=== PATIENT | male | born 1935 | race Caucasian/White ===

== ENCOUNTER 2017-12-19 19:03 | Inpatient (IN) | payer MEDICARE, MEDICAID ==
[~2017-12-19] VITALS: Ht 172.7 cm; Wt 89.5 kg
[2017-12-19] MEDS ORDERED: METF500T PO (20:17)
[2017-12-19] MEDS ORDERED: LISI-600 PO (20:17)
[2017-12-19] MEDS ORDERED: ATOR80TA PO (20:17)
[2017-12-19] MEDS ORDERED: PIOG15TA8 PO (20:17)
[2017-12-19] MEDS ORDERED: GLIM4TAB79 PO (20:17)
[2017-12-19] MEDS ORDERED: CARV-50 PO (20:17)
[2017-12-19] MEDS ORDERED: TAMS0.4C32 PO (20:17)
[2017-12-19] MEDS ORDERED: ASPI-1265 PO (20:17)
[2017-12-19 20:24] LABS: BASOPHILS % (AUTO) 0.3 % (0-1); EOSINOPHILS # (AUTO) 0.1 X10'3 (0-0.9); EOSINOPHILS % (AUTO) 0.8 % (0-6); HEMATOCRIT 39.6 % (42.0-52.0); HEMOGLOBIN 13.3 g/dl (14.0-17.9); LYMPHOCYTES # (AUTO) 1.2 X10'3 (1.1-4.8); LYMPHOCYTES % (AUTO) 10.1 % (21-51); MEAN CORPUSCULAR HEMOGLOBIN 31.9 PG (27.0-31.0); MEAN CORPUSCULAR HGB CONC 33.5 % (33.0-36.5); MEAN CORPUSCULAR VOLUME 95.2 FL (78-98); MEAN PLATELET VOLUME 9.2 FL (7.4-10.4); MONOCYTES # (AUTO) 0.8 X10'3 (0-0.9); MONOCYTES % (AUTO) 6.5 % (2-12); NEUTROPHILS # (AUTO) 9.6 X10'3 (1.8-7.7); NEUTROPHILS % (AUTO) 82.3 % (42-75); PLATELET COUNT 239 X10'3 (140-440); RED BLOOD COUNT 4.16 X10'6 (4.70-6.10); RED CELL DISTRIBUTION WIDTH 16.4 % (11.5-14.5); WHITE BLOOD COUNT 11.6 X10'3 (4.5-11.0)
[2017-12-19 20:36] LABS: INR 1.1 INR; PARTIAL THROMBOPLASTIN TIME 23 SECONDS (22-32)
[2017-12-19 20:40] LABS: ALANINE AMINOTRANSFERASE 37 U/L (12-78); ALBUMIN 3.5 G/DL (3.4-5.0); ALKALINE PHOSPHATASE 114 IU/L (46-116); ANION GAP 11 (8-16); ASPARTATE AMINO TRANSFERASE 20 U/L (10-37); BILIRUBIN,TOTAL 0.9 MG/DL (0.1-1.0); BLOOD UREA NITROGEN 19 MG/DL (7-18); BUN/CREATININE RATIO 15.1 (5.4-32.0); CALCIUM 8.7 MG/DL (8.5-10.1); CHLORIDE 108 MMOL/L (99-107); CREATININE 1.26 MG/DL (0.60-1.10); GLUCOSE 152 MG/DL (70-104); POTASSIUM 4.1 MMOL/L (3.5-5.1); SODIUM 145 MMOL/L (135-145); TOTAL CARBON DIOXIDE 25.7 MMOL/L (24-32); eGFR 55 ML/MIN
[2017-12-19] MEDS ORDERED: normal saline 1000ml 1,000 ML IV ONE (21:05)
[2017-12-19 21:09] LABS: CLARITY,URINE CLEAR (Clear); COLOR,URINE YELLOW (Yellow); GLUCOSE, URINE 250 mg/dl (Neg); KETONES,URINE NEGATIVE (Neg); LEUKOCYTE ESTERASE ,URINE NEGATIVE (Neg); NITRITES, URINE NEGATIVE (Neg); OCCULT BLOOD,URINE TRACE-INTACT (Neg); PH,URINE 5.5 (4.8-8.0); PROTEIN,URINE TRACE mg/dl (Neg)
[2017-12-19 21:30] LABS: UA COLLECTION TYPE NON-SPECIFIED
[2017-12-19 21:32] LABS: HYALINE CASTS 0-3 /LPF (NEGATIVE); WBC,URINE 0-4 /HPF (0-4)
[2017-12-19 21:33] LABS: BACTERIA,URINE NONE SEEN /HPF (Neg); MUCUS STRANDS FEW /LPF (Neg); SQUAMOUS EPITHELIAL CELL,UR FEW /LPF (FEW)
[2017-12-20] MEDS ORDERED: acetaminophen 325mg tablet PO PRN (00:25)
[2017-12-20] MEDS ORDERED: magnesium hydroxide 30ml (MOM) UD suspension PO PRN (00:25)
[2017-12-20] MEDS ORDERED: mag hydrox/Alum hydrox/simeth 30ml oral suspension PO PRN (00:25)
[2017-12-20] MEDS: normal saline 1000ml 1,000 ML IV SCH ×2 (01:19→10:24)
[2017-12-20] MEDS: metroNIDAZOLE-Flagyl 500mg/NS 100 ML IV SCH ×3 (01:19→16:05)
[2017-12-20 01:55] VITALS: BP 103/65
[2017-12-20] MEDS ORDERED: dextrose 50%-water 50ml dispensing syringe IV PRN ×2 (04:20)
[2017-12-20] MEDS ORDERED: glucagon, human recombinant 1mg kit SUBCUT PRN (04:20)
[2017-12-20] MEDS ORDERED: dextrose ORAL solution 15 GM/59 ML bottle PO PRN ×2 (04:20)
[2017-12-20] MEDS ORDERED: insulin Lispro (HumaLOG) vial - multi-dose SQ SCH (04:20)
[2017-12-20] MEDS ORDERED: MESSAGE TO PHARMACY PO ONE (04:20)
[2017-12-20 07:00] VITALS: BP 96/54
[2017-12-20 07:49] LABS: OCCULT BLOOD STOOL NEGATIVE (Neg)
[2017-12-20] MEDS: aspirin 81mg tab.chew PO SCH (07:52)
[2017-12-20] MEDS ORDERED: lisinopril 2.5mg tablet PO SCH (08:00)
[2017-12-20 11:00] VITALS: BP 108/61
[2017-12-20 18:00] VITALS: BP 110/60
[2017-12-20] MEDS: carVEDilol 3.125mg tablet PO SCH (20:38)
[2017-12-20] MEDS: atorvastatin 20mg tablet PO SCH (20:38)
[2017-12-20] MEDS: insulin glargine (Lantus) pen - multi-dose SQ SCH (20:56)
[2017-12-21] MEDS: metroNIDAZOLE-Flagyl 500mg/NS 100 ML IV SCH ×4 (00:46→23:17)
[2017-12-21] MEDS: normal saline 1000ml 1,000 ML IV SCH (05:23)
[2017-12-21 05:26] LABS: BASOPHILS # (AUTO) 0.1 X10'3 (0-0.2); BASOPHILS % (AUTO) 0.6 % (0-1); EOSINOPHILS # (AUTO) 0.3 X10'3 (0-0.9); EOSINOPHILS % (AUTO) 3.5 % (0-6); HEMATOCRIT 37.7 % (42.0-52.0); HEMOGLOBIN 12.9 g/dl (14.0-17.9); MEAN CORPUSCULAR HEMOGLOBIN 32.1 PG (27.0-31.0); MEAN CORPUSCULAR HGB CONC 34.2 % (33.0-36.5); MEAN PLATELET VOLUME 9.1 FL (7.4-10.4); MONOCYTES # (AUTO) 0.9 X10'3 (0-0.9); MONOCYTES % (AUTO) 11.2 % (2-12); NEUTROPHILS # (AUTO) 5.1 X10'3 (1.8-7.7); NEUTROPHILS % (AUTO) 60.7 % (42-75); PLATELET COUNT 207 X10'3 (140-440); RED BLOOD COUNT 4.01 X10'6 (4.70-6.10); RED CELL DISTRIBUTION WIDTH 15.2 % (11.5-14.5); WHITE BLOOD COUNT 8.4 X10'3 (4.5-11.0)
[2017-12-21 05:57] LABS: ALANINE AMINOTRANSFERASE 26 U/L (12-78); ALBUMIN 3.1 G/DL (3.4-5.0); ALBUMIN/GLOBULIN RATIO 0.9 (1.1-1.5); ALKALINE PHOSPHATASE 110 IU/L (46-116); ANION GAP 10 (8-16); ASPARTATE AMINO TRANSFERASE 15 U/L (10-37); BLOOD UREA NITROGEN 12 MG/DL (7-18); BUN/CREATININE RATIO 13.3 (5.4-32.0); CALCIUM 8.1 MG/DL (8.5-10.1); CHLORIDE 108 MMOL/L (99-107); GLUCOSE 92 MG/DL (70-104); POTASSIUM 3.7 MMOL/L (3.5-5.1); SODIUM 142 MMOL/L (135-145); TOTAL CARBON DIOXIDE 23.6 MMOL/L (24-32); TOTAL PROTEIN 6.4 G/DL (6.4-8.2); eGFR 81 ML/MIN
[2017-12-21] MEDS ORDERED: aspirin 81mg tab.chew PO SCH (08:00)
[2017-12-21] MEDS: carVEDilol 3.125mg tablet PO SCH ×2 (08:22→20:34)
[2017-12-21] MEDS: tamsulosin 0.4mg capsule PO SCH (08:22)
[2017-12-21] MEDS: aspirin 81mg tab.chew PO SCH (08:23)
[2017-12-21] MEDS: lisinopril 5mg tablet PO SCH (08:24)
[2017-12-21] MEDS ORDERED: ATOR20TA66 PO (10:15)
[2017-12-21] MEDS ORDERED: METR500T4 PO (10:15)
[2017-12-21] MEDS ORDERED: LISI-604 PO (10:15)
[2017-12-21 11:14] VITALS: BP 102/65
[2017-12-21 11:22] LABS: OCCULT BLOOD STOOL NEGATIVE (Neg)
[2017-12-21] MEDS ORDERED: CARV3.12 PO (12:41)
[2017-12-21 19:00] VITALS: BP 100/62
[2017-12-21] MEDS: atorvastatin 20mg tablet PO SCH (20:34)
[2017-12-21] MEDS: insulin glargine (Lantus) pen - multi-dose SQ SCH (21:00)
[2017-12-22] VITALS: BP 121/77
[2017-12-22] MEDS: normal saline 1000ml 1,000 ML IV SCH ×2 (00:29→12:35)
[2017-12-22 06:47] LABS: BASOPHILS # (AUTO) 0.1 X10'3 (0-0.2); BASOPHILS % (AUTO) 0.7 % (0-1); EOSINOPHILS # (AUTO) 0.3 X10'3 (0-0.9); EOSINOPHILS % (AUTO) 4.2 % (0-6); HEMATOCRIT 38.7 % (42.0-52.0); HEMOGLOBIN 13.2 g/dl (14.0-17.9); LYMPHOCYTES % (AUTO) 27.1 % (21-51); MEAN CORPUSCULAR HEMOGLOBIN 32.3 PG (27.0-31.0); MEAN CORPUSCULAR HGB CONC 34.1 % (33.0-36.5); MEAN CORPUSCULAR VOLUME 94.5 FL (78-98); MEAN PLATELET VOLUME 9.4 FL (7.4-10.4); MONOCYTES # (AUTO) 0.8 X10'3 (0-0.9); MONOCYTES % (AUTO) 11.2 % (2-12); NEUTROPHILS # (AUTO) 4.2 X10'3 (1.8-7.7); NEUTROPHILS % (AUTO) 56.8 % (42-75); PLATELET COUNT 207 X10'3 (140-440); RED BLOOD COUNT 4.09 X10'6 (4.70-6.10); RED CELL DISTRIBUTION WIDTH 15.8 % (11.5-14.5); WHITE BLOOD COUNT 7.4 X10'3 (4.5-11.0)
[2017-12-22 07:02] VITALS: BP 126/74
[2017-12-22 07:30] LABS: ALANINE AMINOTRANSFERASE 26 U/L (12-78); ALBUMIN 3.2 G/DL (3.4-5.0); ALKALINE PHOSPHATASE 105 IU/L (46-116); ANION GAP 13 (8-16); ASPARTATE AMINO TRANSFERASE 17 U/L (10-37); BILIRUBIN,TOTAL 0.8 MG/DL (0.1-1.0); BLOOD UREA NITROGEN 10 MG/DL (7-18); BUN/CREATININE RATIO 11.5 (5.4-32.0); CALCIUM 8.3 MG/DL (8.5-10.1); CHLORIDE 110 MMOL/L (99-107); CREATININE 0.87 MG/DL (0.60-1.10); GLUCOSE 104 MG/DL (70-104); POTASSIUM 3.8 MMOL/L (3.5-5.1); SODIUM 144 MMOL/L (135-145); TOTAL CARBON DIOXIDE 20.9 MMOL/L (24-32); TOTAL PROTEIN 6.3 G/DL (6.4-8.2); eGFR 84 ML/MIN
[2017-12-22] MEDS: lisinopril 5mg tablet PO SCH (09:00)
[2017-12-22] MEDS: tamsulosin 0.4mg capsule PO SCH (09:00)
[2017-12-22] MEDS: carVEDilol 3.125mg tablet PO SCH ×2 (09:00→20:20)
[2017-12-22] MEDS: metroNIDAZOLE-Flagyl 500mg/NS 100 ML IV SCH ×2 (09:01→16:22)
[2017-12-22] MEDS: aspirin 81mg tab.chew PO SCH (09:01)
[2017-12-22 11:50] VITALS: BP 122/82
[2017-12-22 19:00] VITALS: BP 116/72
[2017-12-22] MEDS: atorvastatin 20mg tablet PO SCH (20:20)
[2017-12-22] MEDS: insulin glargine (Lantus) pen - multi-dose SQ SCH (21:00)
[2017-12-22 23:45] VITALS: BP 113/59
[2017-12-23] MEDS: metroNIDAZOLE-Flagyl 500mg/NS 100 ML IV SCH ×2 (00:04→07:52)
[2017-12-23 03:42] LABS: BASOPHILS % (AUTO) 0.3 % (0-1); EOSINOPHILS # (AUTO) 0.3 X10'3 (0-0.9); EOSINOPHILS % (AUTO) 4.5 % (0-6); HEMATOCRIT 36.4 % (42.0-52.0); HEMOGLOBIN 12.3 g/dl (14.0-17.9); LYMPHOCYTES # (AUTO) 1.7 X10'3 (1.1-4.8); LYMPHOCYTES % (AUTO) 25.4 % (21-51); MEAN CORPUSCULAR HEMOGLOBIN 31.8 PG (27.0-31.0); MEAN CORPUSCULAR HGB CONC 33.8 % (33.0-36.5); MEAN CORPUSCULAR VOLUME 94.2 FL (78-98); MEAN PLATELET VOLUME 9.5 FL (7.4-10.4); MONOCYTES # (AUTO) 0.8 X10'3 (0-0.9); MONOCYTES % (AUTO) 11.3 % (2-12); NEUTROPHILS % (AUTO) 58.5 % (42-75); PLATELET COUNT 176 X10'3 (140-440); RED BLOOD COUNT 3.87 X10'6 (4.70-6.10); RED CELL DISTRIBUTION WIDTH 15.8 % (11.5-14.5); WHITE BLOOD COUNT 6.9 X10'3 (4.5-11.0)
[2017-12-23 03:59] LABS: ALANINE AMINOTRANSFERASE 22 U/L (12-78); ALBUMIN 2.9 G/DL (3.4-5.0); ALKALINE PHOSPHATASE 91 IU/L (46-116); ANION GAP 11 (8-16); ASPARTATE AMINO TRANSFERASE 21 U/L (10-37); BILIRUBIN,TOTAL 0.7 MG/DL (0.1-1.0); BLOOD UREA NITROGEN 8 MG/DL (7-18); CALCIUM 7.8 MG/DL (8.5-10.1); CHLORIDE 110 MMOL/L (99-107); GLUCOSE 112 MG/DL (70-104); SODIUM 142 MMOL/L (135-145); TOTAL CARBON DIOXIDE 21.5 MMOL/L (24-32); TOTAL PROTEIN 5.8 G/DL (6.4-8.2); eGFR > 90 ML/MIN
[2017-12-23 04:07] LABS: POTASSIUM 3.4 MMOL/L (3.5-5.1)
[2017-12-23 07:00] VITALS: BP 138/57
[2017-12-23] MEDS: lisinopril 5mg tablet PO SCH (07:52)
[2017-12-23] MEDS: tamsulosin 0.4mg capsule PO SCH (07:52)
[2017-12-23] MEDS: carVEDilol 3.125mg tablet PO SCH (07:52)
[2017-12-23] MEDS: aspirin 81mg tab.chew PO SCH (08:54)
[2017-12-23] MEDS: normal saline 1000ml 1,000 ML IV SCH (09:56)
[2017-12-23 11:00] VITALS: BP 114/72
== END 2017-12-23 15:00 | DRG 391 ==
LOC: ER 19:05 → EDBD 19:05 → OBSVTOIN 12-20 00:24 → ED HOLD 12-20 00:24 → SUR 3N 12-20 01:50
PROVIDERS: ADMIT Emergency Medicine; ATTEND Family Medicine
DX: R19.7 Diarrhea, unspecified (principal); N17.0 Acute kidney failure with tubular necrosis; I50.22 Chronic systolic (congestive) heart failure; E11.9 Type 2 diabetes mellitus without complications; R09.02 Hypoxemia; I95.9 Hypotension, unspecified; E86.0 Dehydration; F03.90 Unspecified dementia, unspecified severity, without behavioral disturbance, psychotic disturbance, mood disturbance, and anxiety; I25.10 Atherosclerotic heart disease of native coronary artery without angina pectoris; Z88.0 Allergy status to penicillin; Z79.82 Long term (current) use of aspirin; Z79.84 Long term (current) use of oral hypoglycemic drugs; Z79.899 Other long term (current) drug therapy
CPT/HCPCS: 36415; 71045; 80053; 81001; 82272; 82948; 83036; 83605; 84145; 84484; 85025; 85610; 85730; 87040; 87045; 87046; 87070; 89055; 93005; 93306; 96360; 99285; A4353; J1815; J3490; J7030